=== PATIENT | male | born 1955 | race Caucasian/White ===

== ENCOUNTER 2017-01-15 10:16 | Emergency (ER) | payer MEDICAID ==
--- NOTE | 2017-01-15 10:57 | Emergency Department Report ---
Entered by JESSA PEARCE, acting as scribe for ROCHELLE ALTMAN NP. Chief Complaint: Extremity Injury, Lower Stated Complaint: TOE DISCLOSURE Time Seen by Provider: 01/15/17 10:47 - HPI History of Present Illness: 61 y/o male with Hx of DM, presents with left 2nd toe discoloration that started 2 months ago but worsened 3 days ago. Sx include numbness. Pt is ambulatory. - ROS Review of Systems: +left foot numbness +left 2nd toe discoloration - Exam Vital Signs: Vital Signs 01/15/17 10:47 Temperature 98.7 F Pulse Rate 76 Respiratory 22 Rate Blood Pressure 149/88 O2 Sat by Pulse 97 Oximetry Physical Exam: left 2nd toe distal portion discolored Prosthetic right leg a and o x4 pt is ambulatory MSE screening note: Focused history and physical exam performed. Due to findings the following was ordered: lab, xr ED Disposition for MSE Condition: Stable This documentation as recorded by the scribe,JESSA PEARCE,accurately reflects the service I personally performed and the decisions made by ANUPAMA st TRACY M , [employer] ENGINEER.
[2017-01-15 11:17] LABS: Basophils % (Auto) 0.8 % (0.0-1.8); Hematocrit 50.9 % (35.5-45.6); Hemoglobin 16.6 gm/dl (11.8-15.2); Mean Corpuscular HGB Conc 33 % (32-34); Mean Corpuscular Hemoglobin 30 pg (28-32); Mean Corpuscular Volume 91 fl (84-94); Platelet Count 227 K/mm3 (140-440); Red Blood Count 5.59 M/mm3 (3.65-5.03); Red Cell Distribution Width 14.5 % (13.2-15.2); White Blood Count 10.4 K/mm3 (4.5-11.0)
[2017-01-15 11:33] LABS: Albumin 3.4 g/dL (3.9-5); Albumin/Globulin Ratio 0.9 %; Alkaline Phosphatase 61 units/L (35-129); BUN/Creatinine Ratio 24.28; Blood Urea Nitrogen 17 mg/dL (9-20); Calcium 8.8 mg/dL (8.4-10.2); Carbon Dioxide 26 mmol/L (22-30); Chloride 94.3 mmol/L (98-107); Glucose 218 mg/dL (75-100); Sodium 134 mmol/L (137-145); Total Protein 7.2 g/dL (6.3-8.2)
--- NOTE | 2017-01-15 12:21 | XRay Report ---
Left wrist 3 views. History: Diabetes, toe infection. Findings: There is no evidence of bony destruction or focal osteopenia. There is narrowing of the first DIP joint. No fractures or other acute findings are seen. Mild soft tissue swelling is suspected. Impression: No radiographic signs of osteomyelitis. 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
[2017-01-15 12:34] LABS: Anion Gap 19 mmol/L; Potassium 5.1 mmol/L (3.6-5.0)
[2017-01-15 12:35] LABS: Alanine Aminotransferase 12 units/L (7-56)
--- NOTE | 2017-01-15 15:28 | Emergency Department Report ---
HPI - General Chief Complaint: Extremity Injury, Lower Time Seen by Provider: 01/15/17 10:47 - HPI HPI: This is a 61-year-old male presents to the emergency department with complaint of a ulceration and color change to the second toe of the left foot has been going on for the past 1-2 months. The patient's daughter recently saw the state of his toe and "freaked out" and sent him into the hospital for further evaluation. This is concerning to them both as the patient had a similar thing happen to his second toe of the right foot that eventually led to a gas gangrene infection, subsequent amputation and then worsening infection of the right leg and eventually a below-knee amputation. The patient says that there is some slight redness to the toe as well. He denies any fever, shortness of breath. He has a past medical history of COPD, insulin-dependent diabetes, hypertension and neuropathy. He has seen [facility] fashion consultant selling for these issues in the past. He says that he usually has a yearly follow-up and was supposed to see them in October but he did not do so. ED Past Medical Hx - Past Medical History Previous Medical History?: Yes Hx Hypertension: Yes Hx Congestive Heart Failure: No Hx Diabetes: Yes Hx Seizures: No Hx Asthma: No Hx COPD: Yes Hx Dementia: No Additional medical history: neuropathy - Surgical History Past Surgical History?: Yes Hx Pacemaker: No Additional Surgical History: Toe amputation - Social History Smoking Status: Never Smoker Substance Use Type: Alcohol - Medications Home Medications: Home Medications Medication Instructions Recorded Confirmed Last Taken Type Docusate Sodium [Colace CAP] 100 mg PO BID PRN #1 capsule 01/10/15 01/15/17 Unknown Rx amLODIPine [Norvasc] 10 mg PO DAILY #30 tablet 01/10/15 01/15/17 11/08/15 Rx Lisinopril [Zestril TAB] 20 mg PO QDAY 11/09/15 01/15/17 11/08/15 History Simvastatin 40 mg PO DAILY 11/09/15 01/15/17 11/08/15 History metFORMIN 1,000 mg PO BID 11/09/15 01/15/17 11/08/15 History Insulin Glargine [Lantus] 33 unit SUB-Q QHS 01/15/17 01/15/17 Unknown History Sulfamethoxazole/Trimethoprim 1 each PO BID #14 tablet 01/15/17 Unknown Rx [Bactrim DS TAB] ED Review of Systems ROS: Stated complaint: TOE DISCLOSURE Other details as noted in HPI Comment: All other systems reviewed and negative Constitutional: denies: chills, fever Eyes: denies: eye pain, eye discharge, vision change ENT: denies: ear pain, throat pain Respiratory: denies: cough, shortness of breath, wheezing Cardiovascular: denies: chest pain, palpitations Gastrointestinal: denies: abdominal pain, nausea, diarrhea Genitourinary: denies: urgency, dysuria Musculoskeletal: arthralgia. denies: back pain Skin: lesions, change in color Neurological: denies: headache, weakness, paresthesias Physical Exam - Physical Exam Vital Signs: Vital Signs 01/15/17 01/15/17 10:47 13:50 Temperature 98.7 F Pulse Rate 76 59 L Respiratory 22 18 Rate Blood Pressure 149/88 Blood Pressure 137/81 [Right] O2 Sat by Pulse 97 98 Oximetry Physical Exam: GENERAL: The patient is well-developed well-nourished. HENT: Normocephalic. Atraumatic. Patient has moist mucous membranes. EYES: Extraocular motions are intact. Pupils equal reactive to light bilaterally. NECK: Supple. Trachea is midline. CHEST/LUNGS: Clear to auscultation. There is no respiratory distress noted. HEART/CARDIOVASCULAR: Regular. There is no tachycardia. There is no gallop rub or murmur. ABDOMEN: Abdomen is soft, nontender. Patient has normal bowel sounds. There is no abdominal distention. Obese habitus. SKIN: There is a ulcerated wound to the left second toe on the toe pad that appears like an eschar. No surrounding erythema. No bleeding, weeping or discharge. NEURO: The patient is awake, alert, and oriented. The patient is cooperative. The patient has no focal neurologic deficits. The patient has normal speech. MUSCULOSKELETAL: There is no tenderness. Chronic right below-knee amputation. There is no evidence of acute injury. Cap refill less than 2 seconds. ED Course Vital Signs 01/15/17 01/15/17 10:47 13:50 Temperature 98.7 F Pulse Rate 76 59 L Respiratory 22 18 Rate Blood Pressure 149/88 Blood Pressure 137/81 [Right] O2 Sat by Pulse 97 98 Oximetry - Consultations Consultation #1: The patient was seen by Troy the PA for [facility] fashion consultant selling. He felt that the patient appears safe for discharge home and follow-up with Dr. Arredondo and agrees with the plan for antibiotics. He suggests that in the future he may need an arterial study but that there was some palpable pulses and agrees that the workup thus far has been negative and that he does not require admission. 01/15/17 16:24 ED Medical Decision Making - Lab Data Result diagrams: 01/15/17 10:58 01/15/17 10:58 - Radiology Data Radiology results: report reviewed X-ray of the left foot does not show any fracture, dislocation or signs of osteomyelitis. - Medical Decision Making 61-year-old male presents to the emergency department with the complaint of a diabetic toe ulcer that has been getting worse for the past 1-2 months. He was concerned as this is how his previous right toe and eventually right leg amputation started. This time he does not have the same amount of erythema and the x-ray does not show any signs of any subcutaneous air or gas forming organisms. Labs are mostly unremarkable. I had the vascular specialist come by and see the patient and they agree that he does not appear to need admission at this time but agree with the plan for antibiotics and follow-up with Dr. Arredondo in the next few days. Vital signs stable. His records including being afebrile. The patient understands and agrees to the plan. Critical Care Time: No Critical care attestation.: If time is entered above; I have spent that time in minutes in the direct care of this critically ill patient, excluding procedure time. ED Disposition Clinical Impression: Diabetes Qualifiers: Diabetes mellitus type: type 1 Diabetes mellitus complication status: with hyperglycemia Qualified Code(s): E10.65 - Type 1 diabetes mellitus with hyperglycemia Diabetic toe ulcer Qualifiers: Diabetes mellitus type: type 1 Laterality: left Non-pressure ulcer stage: unspecified non-pressure ulcer stage Qualified Code(s): E10.621 - Type 1 diabetes mellitus with foot ulcer Disposition: - TO HOME OR SELFCARE Is pt being admited?: No Condition: Stable Instructions: Chronic Wound Care (ED), Diabetic Foot Ulcers (ED) Additional Instructions: Please follow up with Dr. Arredondo at [facility] vascular as soon as possible. Return to the emergency Department with any worsening of the wound, redness of the skin, discharge of pus or any worsening of your symptoms or any acute distress. He can clean the area with soap and water but then make sure it remains dry. Take the antibiotics as prescribed. Prescriptions: Sulfamethoxazole/Trimethoprim [Bactrim DS TAB] 1 each PO BID #14 tablet Referrals: FERNANDA ARREDONDO MD [Staff Physician] - ALIX DE ANDA MD [Primary Care Provider] - RABIA Time of Disposition: 16:20
[2017-01-15 16:41] VITALS: BP 127/75
--- NOTE | 2017-01-15 19:02 | Event Note ---
Date: 01/15/17 Pt presented to [facility] with recent development of an ulceration to his LLE distal second toe. Pt well known to our service from a previous similar condition to his RLE. These wounds progressed and he ultimately required a BKA. With concerns of a similar outcome he presented to the ER for urgent evaluation. He does have a dry ulcer to the distal tip of his L 2nd toe. No overt erythema to this wound. He does have erythema to the 1st toe. Discussed with the Er physician. He will treat his cellulitis and Mr. Mendoza will f/u in our office to further work up. The wound appears flat and I'm concerned about ill-fitting foot wear. I discussed the importance of appropriate fitting foot wear given his decrease level of sensation to his lower ext. Pt states understanding and will call to make an appt in our office with Dr Arredondo.
== END 2017-01-15 16:41 | disposition home or self-care (01) ==
LOC: ED 10:16
DX: E10.621 Type 1 diabetes mellitus with foot ulcer (principal); E10.65 Type 1 diabetes mellitus with hyperglycemia; I10 Essential (primary) hypertension; J44.9 Chronic obstructive pulmonary disease, unspecified; I50.9 Heart failure, unspecified; Z89.421 Acquired absence of other right toe(s)
CPT/HCPCS: 36415; 80053; 82805; 85025; 99283